=== PATIENT | male | born 1980 | race Caucasian/White ===

== ENCOUNTER 2017-12-22 18:34 | Emergency (ER) | payer SELFPAY ==
[2017-12-22] MEDS ORDERED: ACETAMINOPHEN 325 MG TAB ONE (18:57)
[2017-12-22] MEDS ORDERED: DEXAMETHASONE SOD PHOSPHATE 10MG/ML 1ML VIAL ONE (19:25)
[2017-12-22 19:26] LABS: RAPID GROUP A STREP NEGATIVE (NEGATIVE)
[2017-12-22] MEDS ORDERED: IPRATROPIUM/ALBUTEROL SULFATE 3 ML SOLUTION IH ONE (19:28)
== END 2017-12-22 20:49 | disposition home or self-care (01) ==
LOC: EDH 18:34
DX: J11.1 Influenza due to unidentified influenza virus with other respiratory manifestations (principal); Z88.6 Allergy status to analgesic agent; Z72.0 Tobacco use
CPT/HCPCS: 71046; 87804 ×2; 87880; 94640; 96372; 99285; J1100